=== PATIENT | female | born 1995 | race African-American/Black ===

== ENCOUNTER 2020-11-04 12:06 | Emergency (ER) | payer OTHER ==
[2020-11-04 12:17] VITALS: BMI 26.9
[2020-11-04] MEDS ORDERED: KETOROLAC TROMETHAMINE 30 MG/1 ML VIAL IVPUSH ONE (12:40)
[2020-11-04] MEDS ORDERED: SODIUM CHLORIDE 0.9% 500 ML INFUS.BAG IV ONE (13:10)
[2020-11-04 13:42] LABS: BASO % 0.4 % (0-2.0); EOS % 0.7 % (0-4.5); HEMATOCRIT 36.6 % (32.4-45.2); HEMOGLOBIN 12.3 GM/dL (10.7-15.3); LYMPH % 34.4 % (8-40); MCH 28.7 pg (25.7-33.7); MCHC 33.4 g/dl (32.0-36.0); MEAN CELL VOLUME 85.7 fl (80-96); MEAN PLT VOLUME 9.1 fl (7.5-11.1); MONO % 5.2 % (3.8-10.2); NEUT % 59.3 % (42.8-82.8); PLATELET COUNT 161 K/MM3 (134-434); RBC 4.27 M/mm3 (3.60-5.2); RDW 13.6 % (11.6-15.6); WHITE BLOOD COUNT 6.9 K/mm3 (4.0-10.0)
[2020-11-04] MEDS ORDERED: KETOROLAC TROMETHAMINE 30 MG/1 ML VIAL ONE (13:42)
[2020-11-04 14:04] LABS: CHLORIDE 108 mmol/L (98-107); POTASSIUM 4.2 mmol/L (3.5-5.1); SODIUM 141 mmol/L (136-145)
[2020-11-04 14:06] LABS: ALBUMIN 3.9 g/dl (3.4-5.0); ANION GAP 5 MMOL/L (8-16); BLOOD UREA NITROGEN 13.1 mg/dL (7-18); CALCIUM 9.3 mg/dL (8.5-10.1); CO2 27 mmol/L (21-32); GLUCOSE,RANDOM 82 mg/dL (74-106)
[2020-11-04 14:09] LABS: CREATININE 0.7 mg/dL (0.55-1.3); SGOT/AST 16 U/L (15-37); SGPT/ALT 25 U/L (13-61)
[2020-11-04 14:11] LABS: BILIRUBIN,TOTAL 0.2 mg/dL (0.2-1); TOT PROT 7.4 g/dl (6.4-8.2)
[2020-11-04 14:12] LABS: ALK PHOS 71 U/L (45-117)
[2020-11-04] MEDS ORDERED: ACETAMINOPHEN 500 MG TABLET (FP) PO ONE (14:20)
[2020-11-04 15:50] VITALS: BP 112/74; PULSE 74; TEMP 98.1
== END 2020-11-04 15:50 | disposition home or self-care (01) ==
LOC: JER 12:06
PROC: 3E0333Z Introduction of Anti-inflammatory into Peripheral Vein, Percutaneous Approach (ICD-10-PCS; principal; 2020-11-04)
DX: N93.9 Abnormal uterine and vaginal bleeding, unspecified (principal); N94.6 Dysmenorrhea, unspecified
CPT/HCPCS: 36415; 80053; 84702; 85025; 86850; 86900; 86901; 99284-25

== ENCOUNTER 2021-07-17 05:47 | Emergency (ER) | payer OTHER ==
[2021-07-17 05:57] VITALS: BP 112/71; PULSE 86; TEMP 98.6; BMI 27.1
== END 2021-07-17 06:19 | disposition home or self-care (01) ==
LOC: JER 05:47
DX: F41.9 Anxiety disorder, unspecified (principal); R00.2 Palpitations; T40.7X5A Adverse effect of cannabis (derivatives), initial encounter
CPT/HCPCS: 93005; 93010; 99283-25

== ENCOUNTER 2023-03-03 16:14 | Emergency (ER) | payer OTHER ==
[2023-03-03 16:49] VITALS: BP 117/81; PULSE 76; RESP 18; TEMP 98.3; BMI 27.4
== END 2023-03-03 17:37 | disposition left against medical advice (07) ==
LOC: FER 16:14
DX: R51.9 Headache, unspecified (principal)
CPT/HCPCS: 99281-25

== ENCOUNTER 2024-08-31 18:23 | Emergency (ER) | payer OTHER ==
[2024-08-31 18:30] VITALS: RESP 18; BMI 27.6
[2024-08-31] MEDS ORDERED: ONDANSETRON 4 MG/2 ML VIAL ONE (19:23)
[2024-08-31] MEDS ORDERED: KETOROLAC TROMETHAMINE 30 MG/1 ML VIAL ONE (19:23)
[2024-08-31] MEDS ORDERED: ACETAMINOPHEN INJECTION 100 ML ONE (19:23)
[2024-08-31] MEDS: KETOROLAC TROMETHAMINE 30 MG/1 ML VIAL IVPUSH ONE (19:26)
[2024-08-31 19:36] LABS: BASO % 0.4 % (0-2.0); EOS % 1.4 % (0-4.5); HEMATOCRIT 37.6 % (32.4-45.2); HEMOGLOBIN 12.7 GM/dL (10.7-15.3); LYMPH % 28.5 % (8-40); MCH 29.4 pg (25.7-33.7); MCHC 33.7 g/dl (32.0-36.0); MEAN CELL VOLUME 87.4 fl (80-96); MEAN PLT VOLUME 9.4 fl (7.5-11.1); MONO % 4.8 % (3.8-10.2); NEUT % 64.9 % (42.8-82.8); PLATELET COUNT 150 10^3/uL (134-434); RDW 13.4 % (11.6-15.6)
[2024-08-31] MEDS: ACETAMINOPHEN 1000 MG/100 ML BAG IVPB ONE (19:37)
[2024-08-31] MEDS: ONDANSETRON 4 MG/2 ML VIAL IVPUSH ONE (19:37)
[2024-08-31 19:53] LABS: EPI CELLS 13 /uL (0-25.1); HYALINE CASTS 0 /uL (0-3.1); PH,URINE 5.5 (5.0-8.0); URINE APPEARANCE CLEAR; URINE BACTERIA 32 /uL (0-1359); URINE BILIRUBIN NEGATIVE (NEGATIVE); URINE COLOR YELLOW; URINE GLUCOSE (UA) NEGATIVE (NEGATIVE); URINE KETONE NEGATIVE (NEGATIVE); URINE LEUK ESTERASE NEGATIVE (NEGATIVE); URINE NITRITE NEGATIVE (NEGATIVE); URINE PROTEIN NEGATIVE (NEGATIVE); URINE RBC 95 /uL (0-23.9); URINE UROBILINOGEN 0.2 mg/dL (0.2-1.0); URINE WBC 12 /uL (0-25.8)
[2024-08-31 19:55] LABS: POTASSIUM 3.7 mmol/L (3.5-5.1)
[2024-08-31 19:57] LABS: ALBUMIN 3.8 g/dl (3.4-5.0); CALCIUM 9.4 mg/dL (8.5-10.1)
[2024-08-31 20:00] LABS: CREATININE 0.7 mg/dL (0.55-1.3)
[2024-08-31 20:02] LABS: BILIRUBIN,TOTAL 0.5 mg/dL (0.2-1); TOT PROT 7.3 g/dl (6.4-8.2)
[2024-08-31 20:53] LABS: HIV INTERPRETATION NEGATIVE (NEGATIVE)
[2024-08-31] MEDS ORDERED: MORPHINE SULFATE 2 MG/ML SYRINGE ONE (21:33)
[2024-08-31] MEDS: morphine CARPU-JECT 2 MG/1 ML DISP.SYRIN IVPUSH ONE (21:38)
[2024-08-31] MEDS ORDERED: CEPHALEXIN MONOHYDRATE 500 MG CAPSULE (UD) ONE (22:02)
[2024-08-31] MEDS ORDERED: SULFAMETHOXAZOLE/TRIMETHOPRIM 800MG/160MG D.S. TABLET ONE (22:03)
[2024-08-31 22:04] VITALS: BP 112/83; PULSE 85; TEMP 98.5
[2024-08-31] MEDS: CEPHALEXIN MONOHYDRATE 500 MG CAPSULE (UD) PO ONE (22:04)
[2024-08-31] MEDS: SULFAMETHOXAZOLE/TRIMETHOPRIM 800MG/160MG D.S. TABLET PO ONE (22:04)
== END 2024-08-31 22:23 | disposition left against medical advice (07) ==
LOC: JER 18:23
PROC: 3E033NZ Introduction of Analgesics, Hypnotics, Sedatives into Peripheral Vein, Percutaneous Approach (ICD-10-PCS; principal; 2024-08-31)
PROC: 3E0333Z Introduction of Anti-inflammatory into Peripheral Vein, Percutaneous Approach (ICD-10-PCS; 2024-08-31)
PROC: 3E033NZ Introduction of Analgesics, Hypnotics, Sedatives into Peripheral Vein, Percutaneous Approach (ICD-10-PCS; 2024-08-31)
DX: L03.311 Cellulitis of abdominal wall (principal); T81.49XA Infection following a procedure, other surgical site, initial encounter; R11.0 Nausea; R10.30 Lower abdominal pain, unspecified
CPT/HCPCS: 36415; 76705-TC; 80053; 81003; 84703; 85025; 86803; 87086; 87389; 99284-25; J0131

== ENCOUNTER 2024-09-02 15:41 | Inpatient (IN) | payer OTHER ==
[2024-09-02] MEDS ORDERED: ACETAMINOPHEN INJECTION 100 ML ONE (16:59)
[2024-09-02] MEDS: ACETAMINOPHEN 1000 MG/100 ML BAG IVPB ONE (17:18)
[2024-09-02 17:20] LABS: BASO % 0.5 % (0-2.0); EOS % 1.2 % (0-4.5); HEMATOCRIT 36.4 % (32.4-45.2); HEMOGLOBIN 12.4 GM/dL (10.7-15.3); LYMPH % 25.6 % (8-40); MCH 29.9 pg (25.7-33.7); MCHC 34.1 g/dl (32.0-36.0); MEAN CELL VOLUME 87.7 fl (80-96); MEAN PLT VOLUME 8.9 fl (7.5-11.1); MONO % 5.7 % (3.8-10.2); PLATELET COUNT 154 10^3/uL (134-434); RBC 4.15 M/mm3 (3.60-5.2); RDW 13.1 % (11.6-15.6); WHITE BLOOD COUNT 9.6 K/mm3 (4.0-10.0)
[2024-09-02 17:28] LABS: INR 1.14 (0.83-1.09); PROTHROMBIN TIME (PATIENT) 12.8 SEC (9.7-13.0)
[2024-09-02 17:46] LABS: POTASSIUM 4.3 mmol/L (3.5-5.1)
[2024-09-02 17:48] LABS: ALBUMIN 3.6 g/dl (3.4-5.0); BLOOD UREA NITROGEN 9.4 mg/dL (7-18)
[2024-09-02 17:51] LABS: CREATININE 0.9 mg/dL (0.55-1.3)
[2024-09-02 17:53] LABS: BILIRUBIN,TOTAL 0.5 mg/dL (0.2-1); TOT PROT 7.1 g/dl (6.4-8.2)
[2024-09-02] MEDS ORDERED: MORPHINE SULFATE 2 MG/ML SYRINGE ONE (19:04)
[2024-09-02] MEDS: morphine CARPU-JECT 2 MG/1 ML DISP.SYRIN IVPUSH ONE (19:10)
[2024-09-02 19:55] LABS: EPI CELLS >36 /uL (0-25.1); HYALINE CASTS 0 /uL (0-3.1); URINE APPEARANCE CLEAR; URINE BACTERIA 1059 /uL (0-1359); URINE BILIRUBIN NEGATIVE (NEGATIVE); URINE COLOR YELLOW; URINE GLUCOSE (UA) NEGATIVE (NEGATIVE); URINE KETONE NEGATIVE (NEGATIVE); URINE LEUK ESTERASE NEGATIVE (NEGATIVE); URINE NITRITE NEGATIVE (NEGATIVE); URINE PROTEIN NEGATIVE (NEGATIVE); URINE RBC 36 /uL (0-23.9); URINE UROBILINOGEN 0.2 mg/dL (0.2-1.0); URINE WBC 19 /uL (0-25.8)
[2024-09-02 20:15] LABS: HCG,QUALITATIVE URINE Negative
[2024-09-02] MEDS ORDERED: CEFEPIME 1 GM/100 ML BAG IVPB ONE (21:10)
[2024-09-02] MEDS: CEFEPIME HCL 1 GM VIAL (RESTRICTED TO ID) IVPB ONE (21:18)
[2024-09-02] MEDS ORDERED: VANCOMYCIN 1 GRAM (PRE-DOCKED) 1,000 MG/250 ML BAG IVPB ONE (21:51)
[2024-09-02] MEDS: VANCOMYCIN 1,000 MG in DEXTROSE 5%-WATER - 250 ML IVPB ONE (22:25)
[2024-09-03 03:13] VITALS: BMI 28.3
[2024-09-03 10:33] LABS: BASO % 0.3 % (0-2.0); HEMATOCRIT 36.1 % (32.4-45.2); HEMOGLOBIN 12.1 GM/dL (10.7-15.3); LYMPH % 22.8 % (8-40); MCH 29.5 pg (25.7-33.7); MCHC 33.6 g/dl (32.0-36.0); MEAN CELL VOLUME 87.7 fl (80-96); MEAN PLT VOLUME 9.5 fl (7.5-11.1); MONO % 6.2 % (3.8-10.2); NEUT % 69.7 % (42.8-82.8); PLATELET COUNT 147 10^3/uL (134-434); RBC 4.12 M/mm3 (3.60-5.2); RDW 13.2 % (11.6-15.6)
[2024-09-03 10:54] LABS: POTASSIUM 3.6 mmol/L (3.5-5.1)
[2024-09-03 11:04] LABS: BLOOD UREA NITROGEN 9.1 mg/dL (7-18); CALCIUM 9.1 mg/dL (8.5-10.1)
[2024-09-03 11:08] LABS: CREATININE 0.8 mg/dL (0.55-1.3)
[2024-09-03] MEDS: PIPERACILLIN/TAZOB 3.375 GM 50 ML IVPB SCH (11:38)
[2024-09-03] MEDS: ACETAMINOPHEN 1000 MG/100 ML BAG IVPB PRN (14:35)
[2024-09-03 15:16] VITALS: RESP 18
[2024-09-03] MEDS: PIPERACILLIN/TAZOB 3.375 GM 3.375 GM in DEXTROSE 5%-WATER - 50 ML IVPB SCH (18:14)
[2024-09-03] MEDS: VANCOMYCIN/WATER 1250 MG 1,250 MG/250 ML BAG IVPB SCH (18:19)
[2024-09-03 23:27] VITALS: BP 114/77; PULSE 68; TEMP 97.5
== END 2024-09-04 | disposition left against medical advice (07) | DRG 383 ==
LOC: JER 15:41 → INTOOBSV 22:31 → JERBED 22:31 → UNDOADMOB 22:31 → JERBED 23:35 → J5S 09-03 00:23 → JERBED 09-03 00:23 → OBSVTOIN 09-03 10:51
PROVIDERS: ADMIT Internal Medicine; ATTEND Internal Medicine
DX: L02.211 Cutaneous abscess of abdominal wall (principal); R10.9 Unspecified abdominal pain
CPT/HCPCS: 0241U-QW; 36415; 74177-TC; 80048; 80053; 81003; 83735; 84703; 85025; 85610; 85730; 86850; 86900; 86901; 87086; 93005; 93010; 99285-25; G0378; J0131; Q9967